=== PATIENT | female | born 1995 | race Two or more races ===

== ENCOUNTER 2024-04-01 19:10 | Emergency (ER) | payer MEDICAID, OTHER ==
[~2024-04-01] VITALS: Ht 162.6 cm; Wt 61.2 kg
[2024-04-01] MEDS ORDERED: ACETAMINOPHEN ES 500 MG TABLET ONE (20:33)
[2024-04-01] MEDS ORDERED: ONDANSETRON 4 MG TAB.RAPDIS ONE (20:34)
[2024-04-01] MEDS: ACETAMINOPHEN ES 500 MG TABLET PO ONE (20:36)
[2024-04-01] MEDS: ONDANSETRON 4 MG TAB.RAPDIS SL ONE (20:37)
[2024-04-01] MEDS ORDERED: ONDANSETRON HCL/PF 4 MG/2 ML VIAL ONE (21:48)
[2024-04-01] MEDS ORDERED: ONDA4TAB5 PO (21:51)
[2024-04-01] MEDS ORDERED: IBUP-1490 PO (21:51)
[2024-04-01] MEDS: ONDANSETRON HCL/PF 4 MG/2 ML VIAL IV ONE (22:02)
[2024-04-01 22:03] VITALS: BP 138/80; TEMP 209.5; O2SAT 100
== END 2024-04-01 22:03 | disposition home or self-care (01) ==
LOC: ER 19:12
DX: S06.0XAA Concussion with loss of consciousness status unknown, initial encounter (principal); M25.562 Pain in left knee; Z88.0 Allergy status to penicillin; Z88.1 Allergy status to other antibiotic agents; W22.8XXA Striking against or struck by other objects, initial encounter; Y93.89 Activity, other specified; Y92.410 Unspecified street and highway as the place of occurrence of the external cause; Y99.8 Other external cause status
CPT/HCPCS: 99285; 96374; 70450; J2405; Q0162